=== PATIENT | female | born 1985 | race Caucasian/White ===

== ENCOUNTER 2020-04-27 16:00 | Emergency (ER) | payer MEDICAID ==
[~2020-04-27] VITALS: Ht 172.7 cm; Wt 79.1 kg
--- NOTE | 2020-04-27 16:13 | NUR ---
03/07/20. 03/12 pt went to ER, was wrapped in binder and was told to keep pressure on it. Woke up the next morning with burning sensation, pulled off the binder and there was a "bubble" coming out of the stitches. Then went to doctor's office and had to go back into surgery that night. Out of hospital 03/20/20, went home with wound vac. Has been having intermittent pain since then but getting more frequent. Pt reports some vomitting, sweats, feeling feverish. Pt reports she has been urinating like usual. Reports she is bleeding out of vagina x4 days, about as much as when she is on her period but doesn't think she is on her period.
[2020-04-27 17:29] VITALS: BP 120/70
== END 2020-04-27 17:31 | disposition home or self-care (01) ==
LOC: ED 16:41
DX: R10.31 Right lower quadrant pain (principal); F17.200 Nicotine dependence, unspecified, uncomplicated
CPT/HCPCS: 99284